=== PATIENT | female | born 1955 | race Caucasian/White ===

== ENCOUNTER → 2020-08-04 14:27 | Outpatient (BNVA) | payer MEDICARE, SELFPAY | PROVIDERS: PCP Pediatrics; Referring Provider Pediatrics; Visit Provider Orthopaedic Surgery | DX: M75.42 Impingement syndrome of left shoulder (principal) | CPT/HCPCS: 20610; J1040 ==

== ENCOUNTER 2022-09-16 13:04 | Outpatient (REF) | payer MEDICARE, SELFPAY ==
[2022-09-16 13:15] LABS: MANUAL DIFF FLAG NO
[2022-09-16 14:17] LABS: Basophils Absolute Auto 0.1 X10*3/uL (0.0-0.2); Basophils Percent Auto 0.7 % (0-2); Eosinophils Absolute Auto 0.3 X10*3/uL (0.0-0.4); Eosinophils Percent Auto 3.6 % (0-4); Hematocrit 47.1 % (37.0-47.0); Imm Gran Abs Auto 0.03 X10*3/uL (0.00-0.03); Imm Gran Pct Auto 0.4 % (0.0-0.4); Lymphocytes Absolute Auto 2.2 X10*3/uL (1.2-4.9); Mean Corpuscular Hemoglobin 31.6 pg (27.0-33.0); Mean Corpuscular Volume 93.1 fL (80.0-98.0); Mean Platelet Volume 10.4 fL (9.4-12.3); Monocytes Absolute Auto 0.9 X10*3/uL (0.1-1.2); Monocytes Percent Auto 12.6 % (2-11); Neutrophils Absolute Auto 3.9 x10*3/uL (2.0-8.3); Neutrophils Percent Auto 52.7 % (45-73); Platelet Count 317 X10*3/uL (160-400); Red Blood Count 5.06 X10*6/uL (4.20-5.50); Red Cell Distribution Width 12.7 % (11.0-16.0); White Blood Count 7.4 X10*3/uL (4.8-10.8)
[2022-09-16 14:37] LABS: Estimated Average Glucose 111 mg/dL; Hemoglobin A1c % 5.5 %
[2022-09-16 14:51] LABS: Alanine Aminotransferase 20 U/L (0-31); Albumin Level 4.6 g/dL (3.5-5.0); Alkaline Phosphatase 70 U/L (39-117); Anion Gap 15 (12-20); Aspartate Amino Transferase 22 U/L (5-31); Bilirubin Total 0.8 mg/dL (0.0-1.0); Blood Urea Nitrogen 13 mg/dL (9-16); C Reactive Protein 0.67 mg/dL (< or = 0.50); Calcium 10.2 mg/dL (8.4-10.2); Carbon Dioxide 30 mmol/L (22-29); Chloride 96 mmol/L (96-108); Cholesterol 190 mg/dL; Estimated Glomerular Filt Rate > 60; Glucose Random 102 mg/dL (60-115); HDL Cholesterol 52 mg/dL; LDL Cholesterol Calculated 106 mg/dl; Potassium 3.6 mmol/L (3.3-5.1); Rheumatoid Factor < 13.0 IU/mL (<15.0); Sodium 137 mmol/L (135-145); Total Protein 7.4 g/dL (6.5-8.0); Triglycerides 164 mg/dL
[2022-09-16 14:57] LABS: Erythrocyte Sedimentation Rate 7 MM/HR (0-20)
[2022-09-19 14:49] LABS: Cyclic Citrullinated Peptide <16 UNITS
== END 2022-09-16 13:05 | disposition home or self-care (01) ==
LOC: HO.LAB 13:04
PROVIDERS: Visit Provider Student in an Organized Health Care Education/Training Program
DX: M25.572 Pain in left ankle and joints of left foot (principal); E88.81 Metabolic syndrome and other insulin resistance; M10.9 Gout, unspecified
CPT/HCPCS: 36415; 80053; 80061; 83036; 85025; 85652; 86140; 86200; 86431; 99202

== ENCOUNTER → 2022-10-18 09:15 | Outpatient (BNVA) | payer MEDICARE, SELFPAY | PROVIDERS: PCP Student in an Organized Health Care Education/Training Program; Visit Provider Student in an Organized Health Care Education/Training Program | DX: M10.072 Idiopathic gout, left ankle and foot (principal); M18.12 Unilateral primary osteoarthritis of first carpometacarpal joint, left hand | CPT/HCPCS: 99212 ==

== ENCOUNTER 2022-10-19 09:13 | Outpatient (REF) | payer MEDICARE, SELFPAY ==
--- NOTE | ~2022-10-19 | XR_ITS ---
EXAMINATION: XR hand wrist LT, XR hand wrist RT CLINICAL INFORMATION: Osteoarthritis COMPARISON: None TECHNIQUE: 4 views of the bilateral hands and wrists FINDINGS: RIGHT HAND: No fracture or dislocation. Moderate degenerative changes of the first carpometacarpal and triscaphe joints with loss of joint space. No cortical erosion. Soft tissues are unremarkable. LEFT HAND: No fracture or dislocation. Moderate to advanced degenerative changes of the first carpometacarpal joint with loss of joint space. Moderate degenerative changes of the distal interphalangeal joints with degenerative spurring. No cortical erosion. Soft tissues are unremarkable. XR/XR hand wrist LT IMPRESSION: Mild to moderate degenerative changes of the right hand and wrist and moderate to advanced degenerative changes of the left wrist as above detailed.
--- NOTE | ~2022-10-19 | XR_ITS ---
EXAMINATION: XR hand wrist LT, XR hand wrist RT CLINICAL INFORMATION: Osteoarthritis COMPARISON: None TECHNIQUE: 4 views of the bilateral hands and wrists FINDINGS: RIGHT HAND: No fracture or dislocation. Moderate degenerative changes of the first carpometacarpal and triscaphe joints with loss of joint space. No cortical erosion. Soft tissues are unremarkable. LEFT HAND: No fracture or dislocation. Moderate to advanced degenerative changes of the first carpometacarpal joint with loss of joint space. Moderate degenerative changes of the distal interphalangeal joints with degenerative spurring. No cortical erosion. Soft tissues are unremarkable. XR/XR hand wrist RT IMPRESSION: Mild to moderate degenerative changes of the right hand and wrist and moderate to advanced degenerative changes of the left wrist as above detailed.
[2022-10-19 10:06] LABS: Alanine Aminotransferase 21 U/L (0-31); Albumin Level 4.4 g/dL (3.5-5.0); Alkaline Phosphatase 76 U/L (39-117); Anion Gap 13 (12-20); Aspartate Amino Transferase 20 U/L (5-31); Bilirubin Total 0.8 mg/dL (0.0-1.0); Blood Urea Nitrogen 13 mg/dL (9-16); Carbon Dioxide 32 mmol/L (22-29); Chloride 99 mmol/L (96-108); Estimated Glomerular Filt Rate > 60; Glucose Random 147 mg/dL (60-115); Potassium 3.4 mmol/L (3.3-5.1); Sodium 141 mmol/L (135-145); Total Protein 7.1 g/dL (6.5-8.0); Uric Acid 4.7 mg/dL (2.4-5.7)
== END 2022-10-19 09:14 | disposition home or self-care (01) ==
LOC: HO.LAB 09:13
PROVIDERS: Visit Provider Student in an Organized Health Care Education/Training Program
DX: M19.041 Primary osteoarthritis, right hand (principal); M19.042 Primary osteoarthritis, left hand; M10.9 Gout, unspecified
CPT/HCPCS: 36415; 73110; 73130; 80053; 84550; 86140

== ENCOUNTER → 2022-10-21 10:07 | Outpatient (BNVA) | payer MEDICARE, SELFPAY | PROVIDERS: Visit Provider Physician Assistant | DX: M18.12 Unilateral primary osteoarthritis of first carpometacarpal joint, left hand (principal) | CPT/HCPCS: 99202 ==

== ENCOUNTER → 2022-11-08 15:11 | Outpatient (BNVA) | payer MEDICARE, SELFPAY | PROVIDERS: PCP Student in an Organized Health Care Education/Training Program; Visit Provider Student in an Organized Health Care Education/Training Program | DX: M18.12 Unilateral primary osteoarthritis of first carpometacarpal joint, left hand (principal) | CPT/HCPCS: 20600; 99212 ==

== ENCOUNTER → 2022-12-20 12:21 | Outpatient (BNVA) | payer MEDICARE, SELFPAY | PROVIDERS: PCP Student in an Organized Health Care Education/Training Program; Visit Provider Orthopaedic Surgery | DX: M18.0 Bilateral primary osteoarthritis of first carpometacarpal joints (principal); M77.8 Other enthesopathies, not elsewhere classified | CPT/HCPCS: 20550; 99202; J1100 ==

== ENCOUNTER → 2023-03-01 11:21 | Outpatient (BNVA) | payer MEDICARE, SELFPAY | PROVIDERS: PCP Student in an Organized Health Care Education/Training Program; Visit Provider Orthopaedic Surgery | DX: M77.8 Other enthesopathies, not elsewhere classified (principal); M18.12 Unilateral primary osteoarthritis of first carpometacarpal joint, left hand | CPT/HCPCS: 99212 ==

== ENCOUNTER → 2023-04-12 10:43 | Outpatient (BNVA) | payer MEDICARE, SELFPAY | PROVIDERS: PCP Student in an Organized Health Care Education/Training Program; Visit Provider Orthopaedic Surgery | DX: S62.002D Unspecified fracture of navicular [scaphoid] bone of left wrist, subsequent encounter for fracture with routine healing (principal); M18.12 Unilateral primary osteoarthritis of first carpometacarpal joint, left hand | CPT/HCPCS: 99212 ==

== ENCOUNTER 2023-05-22 15:00 | Outpatient (RCR) | payer MEDICARE, SELFPAY ==
--- NOTE | 2023-03-28 11:56 | MHC.OT.EP ---
[address] [phone] Occupational Therapy Plan of Care Patient Name: Gila Caceres Date of Evaluation: 03/28/23 Diagnosis: Left FCR tendonitis Left 1st CMC OA Pain Location: 4-8 base of thumb sharp or constant ache prox to base of thumb Pain Score: 6 Pain Scale Used: Numeric (0 - 10) Aggravating Factors: Left hand pinching, gripping .. hand use. Pain at rest Alleviating Factors: Cold Assessment: Pt is a 67 yo female s/p injection for left CMC jt pain in October and for left FCR in December without improvement. Pt referred to OT Today pt presents with left wrist and thumb impairments in pain, ROM , strength and function due CMC OA and FCR tendonitis. Pt will benefit from OT for modalities for pain , ther ex and pt ed in joint protection and self management Frequency and Duration: The patient will be seen 3x wk x 6 wks Short Term Goals: Report on use of joint protection with daily activities Decrease pain to 0/10 at rest Demo independence with HEP Tolerate isometric wrist and hand strengthening Half-Way Goals: Pain free left wrist ext to >65 deg Pain free left wrist flex to >70 deg Left meat wrapper to > 30 lb Pain free with light to moderate heavy ADL and IADL with activity modifications as needed Treatment Plan: Therapeutic Exercise Therapeutic Activity Home Exercise Program Splinting Patient Education ADL Training Ultrasound Iontophoresis MHP Cold Packs Soft Tissue Mobilization Electronically Signed By: Nehal Moody OT CHT CLT Please Sign and return to therapist. Thank you once again for your referral.
--- NOTE | 2023-06-16 08:22 | MHC.OT.DC ---
[address] [phone] F: [phone] Occupational Therapy Discharge Note Patient Name: Gila Caceres Provider: Tasha Amanda Diagnosis: Left FCR tendonitis Left 1st CMC OA Date of Surgery: 12/20/22 Date of Evaluation: 03/28/23 Date of Discharge: 06/16/23 Treatments to Date: 11 Cancellations to Date: No Shows to Date: Discharge Status: Patient Elected to Stop Discharge Summary: Significant improvement in pain and thenar ms edema noted with hold on ther ex for pain and edema to calm down Pt protecting left wrist and thumb with daily activities and indep with taping for support Pt scheduled a second opinion on a surgical option with [facility] on 05/31/23 and cancelled follow up OT appointments Electronically Signed By: Nehal Moody OT CHT CLT Reviewed/agree with student documentation: Therapist: Please Sign and return to therapist, thank you for your referral.
== END 2023-06-16 08:22 | disposition home or self-care (01) ==
LOC: HO.OT 15:00
PROVIDERS: PCP Student in an Organized Health Care Education/Training Program; Visit Provider Orthopaedic Surgery
DX: M77.8 Other enthesopathies, not elsewhere classified (principal); M18.12 Unilateral primary osteoarthritis of first carpometacarpal joint, left hand
CPT/HCPCS: 97033; 97035; 97110; 97140; 97166; 97760

== ENCOUNTER 2024-05-08 13:48 | Outpatient (REF) | payer MEDICARE, SELFPAY ==
[2024-05-08 15:11] LABS: MANUAL DIFF FLAG NO
[2024-05-08 15:49] LABS: Basophils Absolute Auto 0.1 X10*3/uL (0.0-0.2); Basophils Percent Auto 0.7 % (0-2); Eosinophils Absolute Auto 0.6 X10*3/uL (0.0-0.4); Eosinophils Percent Auto 7.3 % (0-4); Hematocrit 42.4 % (37.0-47.0); Hemoglobin 14.6 g/dl (12.0-16.0); Imm Gran Abs Auto 0.03 X10*3/uL (0.00-0.03); Imm Gran Pct Auto 0.3 % (0.0-0.4); Lymphocytes Absolute Auto 2.4 X10*3/uL (1.2-4.9); Lymphocytes Percent Auto 27.6 % (20-40); Mean Corpuscular HGB Conc 34.4 g/dl (31.0-35.0); Mean Corpuscular Hemoglobin 32.3 pg (27.0-33.0); Mean Corpuscular Volume 93.8 fL (80.0-98.0); Mean Platelet Volume 12.2 fL (9.4-12.3); Monocytes Absolute Auto 0.8 X10*3/uL (0.1-1.2); Monocytes Percent Auto 9.7 % (2-11); Neutrophils Absolute Auto 4.7 x10*3/uL (2.0-8.3); Neutrophils Percent Auto 54.4 % (45-73); Platelet Count 196 X10*3/uL (160-400); Red Blood Count 4.52 X10*6/uL (4.20-5.50); Red Cell Distribution Width 13.2 % (11.0-16.0); White Blood Count 8.7 X10*3/uL (4.8-10.8)
[2024-05-08 15:51] LABS: Appearance Urine Cloudy; Color Urine Yellow; Glucose Urine UA Negative (Negative); Leukocyte Esterase Urine Trace (Negative); Nitrite Urine Negative (Negative); Specific Gravity - Urine 1.015 (1.005-1.025); UMIC TRIGGER UA YES; Urine Blood Negative (Negative); Urine Ketones Negative (Negative); Urine Protein Negative (Neg-Trace)
[2024-05-08 16:04] LABS: Creatinine Urine 85.47 mg/dL; Total Protein Urine Random < 7 mg/dL (<12)
[2024-05-08 16:23] LABS: Alanine Aminotransferase 27 U/L (0-31); Albumin Level 4.9 g/dL (3.5-5.0); Alkaline Phosphatase 78 U/L (39-117); Anion Gap 17 (12-20); Aspartate Amino Transferase 31 U/L (5-31); Bilirubin Total 0.6 mg/dL (0.0-1.0); Blood Urea Nitrogen 15 mg/dL (9-16); C Reactive Protein 0.39 mg/dL (< or = 0.50); Calcium 10.6 mg/dL (8.4-10.2); Carbon Dioxide 27 mmol/L (22-29); Chloride 100 mmol/L (96-108); Estimated Glomerular Filt Rate > 60; Glucose Random 96 mg/dL (60-115); Potassium 3.2 mmol/L (3.3-5.1); Sodium 141 mmol/L (135-145); Total Protein 8.4 g/dL (6.5-8.0); Uric Acid 4.1 mg/dL (2.4-5.7)
[2024-05-08 16:26] LABS: Bacteria Urine None Seen (None Seen); Hyaline Casts Urine 0-2 /LPF (0-2); RBC Urine 0-2 /HPF (0-2); WBC Urine 0-5 /HPF (0-5)
[2024-05-08 17:35] LABS: Erythrocyte Sedimentation Rate 10 MM/HR (0-20)
[2024-05-09 04:53] LABS: HBc Num1 0.17 S/CO (0.00-0.79); HBsAGNum1 0.31 S/CO (0.00-0.99); Hepatitis A Antibody IgM 0.24 Index (0-0.79); Hepatitis B Core Antibody Nonreactive (Nonreactive); Hepatitis B Surface Antigen Negative (Negative); ~HepC Num1 0.19 S/CO (0.00-0.79); ~Hepatitis A Antibody IgM Nonreactive (Nonreactive); ~Hepatitis B Surface Antibody NONREACTIVE (Nonreactive); ~Hepatitis C Antibody Nonreactive (Nonreactive)
[2024-05-09 10:18] LABS: Complement C3 136 mg/dL (83-193)
[2024-05-09 14:29] LABS: Anti DNA DS Antibody <1 IU/mL; Antibody to SS-A Antigen <1.0 NEG AI (<1.0 NEG); Antibody to SS-B Antigen <1.0 NEG AI (<1.0 NEG); Myeloperoxidase Antibody <1.0 AI; Proteinase 3 PR3 Antibodies <1.0 AI; SM/Ribonucleoprotein Ab <1.0 NEG AI (<1.0 NEG); Smith Protein <1.0 NEG AI (<1.0 NEG)
[2024-05-10 11:39] LABS: IgA 162 mg/dL (70-320); IgG 1156 mg/dL (600-1540); IgM 237 mg/dL (50-300)
[2024-05-10 22:37] LABS: Prot Elec - Albumin 4.7 g/dL (3.8-4.8); Prot Elec - Alpha1 0.3 g/dL (0.2-0.3); Prot Elec - Alpha2 0.7 g/dL (0.5-0.9); Prot Elec - Beta 1 0.5 g/dL (0.4-0.6); Prot Elec - Beta 2 0.3 g/dL (0.2-0.5); Prot Elec - Gamma 1.1 g/dL (0.8-1.7); Prot Elec - Total Protein 7.6 g/dL (6.1-8.1); TS Negative Control Passed; TS Panel A 0; TS Panel B 1; TS Positive Control Passed; TSpotTB Negative (Negative)
[2024-05-11 18:48] LABS: Angiotensin Converting Enzyme 44 U/L (9-67)
[2024-05-14 10:08] LABS: Anti Nuclear Antibody Screen POSITIVE (NEGATIVE)
[2024-05-19 17:12] LABS: Cytosolic 5'nuc 1A Ab IgG <5 Units; Ej Ab <11 SI (<11); HMGCR Ab IgG <2 CU (<20); Jo-1 Ab <11 SI (<11); MDA5 Ab <11 SI (<11); Mi-2 alpha Ab <11 SI (<11); Mi-2 beta Ab <11 SI (<11); NXP-2 (MJ) Ab <11 SI (<11); Oj Ab <11 SI (<11); Pl-12 Ab <11 SI (<11); Pl-7 Ab <11 SI (<11); SRP Ab <11 SI (<11); TIF1 gamma Ab <11 SI (<11)
[2024-05-21 15:33] LABS: DNAds, Crithidia Antibody Negative (Negative)
[2024-05-21 16:09] LABS: Centromere Protein A Ab <11 SI (<11); Centromere Protein B Ab <11 SI (<11); Fibrillarin Ab <11 SI (<11); PM SCL 100 Ab 11 SI (<11); PM SCL 75 Ab <11 SI (<11); RNA Polymerase III RP11 Ab <11 SI (<11); RNA Polymerase III RP155 Ab <11 SI (<11); SCL-70 Extractable Nuclear Ab <11 SI (<11); Th-To Ab <11 SI (<11); U1 SNRNP RNP 70KD <11 SI (<11); U1 SNRNP RNP A <11 SI (<11); U1 SNRNP RNP C <11 SI (<11)
== END 2024-05-08 13:49 | disposition home or self-care (01) ==
LOC: HO.LAB 13:48
PROVIDERS: PCP Student in an Organized Health Care Education/Training Program; Visit Provider Student in an Organized Health Care Education/Training Program
DX: Z11.59 Encounter for screening for other viral diseases (principal); Z11.7 Encounter for testing for latent tuberculosis infection; M32.9 Systemic lupus erythematosus, unspecified; M34.9 Systemic sclerosis, unspecified; M10.072 Idiopathic gout, left ankle and foot; I77.6 Arteritis, unspecified; D86.9 Sarcoidosis, unspecified; R76.8 Other specified abnormal immunological findings in serum; Z72.89 Other problems related to lifestyle; M18.0 Bilateral primary osteoarthritis of first carpometacarpal joints
CPT/HCPCS: 36415; 80053; 81001; 82164; 82550; 82570; 82784; 83516; 83520; 84156; 84165; 84182; 84550; 85025; 85652; 86021; 86038; 86039; 86140; 86160; 86225; 86235; 86255; 86334; 86481; 86704; 86706; 86709; 86803; 87340; 99212

== ENCOUNTER 2024-05-08 13:48 | Outpatient (AMB) | payer MEDICARE, SELFPAY ==
[2024-05-08 14:00] VITALS: BP 132/72; PULSE 70; O2SAT 99; BMI 25.0
--- NOTE | 2024-05-08 14:00 | MHC.OFFVIS ---
Vital Signs 05/08/24 14:00 Height 5 ft 2 in Weight 136 lb 7.458 oz BMI 25.0 BP 132/72 Blood Pressure Location Lt brachial Pulse 70 Pulse Source Pulse Oximeter Pulse Oximetry (%) 99 Oxygen Delivery Method Room Air Intake Visit Reasons: Gout Intake Note: Patient is here to follow up on autoimmune disease. Allergies adhesive tape Adverse Reaction (Unknown, Verified 05/08/24 14:03) Unknown amoxicillian Allergy (Unknown, Uncoded 05/08/24 14:03) Diarhhea Medication List - Last Reconciled 05/08/24 by Chepe Zheng MD allopurinol 300 mg PO DAILY amlodipine benzoate 2.5 mg PO DAILY colchicine 0.6 mg PO .every other day ibuprofen 800 mg PO Q8H PRN olmesartan 20 mg PO DAILY [thumb spica As directed] tiotropium bromide 1.25 mcg/actuation (Spiriva Respimat) 2 puffs inhalation DAILY HPI Comments Details: This is a 68-year-old female with gout who presents for follow-up. She states that her low-dose CT lung scan showed a nodule in her right long, repeat CT chest showed that the nodule has a neurologist, she eventually had a VATS procedure and had right upper lobectomy. Pathology showed inflammatory changes. She had a neither CT scan of the chest a few months later which showed another nodule on the left lung. At that time she blood work which showed a positive MENDEZ. Patient states that in this whole process she has not had any new symptoms. She denies any cough, shortness of breath, fevers, chills, skin rashes. She denies any history of DVT/PE. She states that she has a positive family history of rheumatoid arthritis. She continues to have pain at the base of her thumbs, worse on the left due to known osteoarthritis, her hand surgeon had suggested left thumb surgery but patient wanted to postpone the procedure. [facility], [facility] Medical History Right upper lobe pulmonary nodule COPD (chronic obstructive pulmonary disease) Emphysema lung Hypertension Family History Mother Brainstem hemorrhage Father Gout Sister Rheumatoid arthritis Brother Rheumatoid arthritis Social History Current occupational status: retired Current occupation: Right Handed Female Reproductive History Menstrual Total pregnancies: 3 Ab spontaneous: 1 Review of Systems Const Denies fever(s) and Denies weight loss Card Denies dyspnea on exertion Resp Denies cough and Denies dyspnea on exertion Musc Reports arthralgias, Denies joint swelling and Reports stiffness Skin/Breast Reports unusual bruising Physical Exam Vital Signs: Last Vital Signs Pulse 70 05/08/24 14:00 BP 132/72 05/08/24 14:00 Pulse Ox 99 05/08/24 14:00 Oxygen Delivery Method Room Air 05/08/24 14:00 BMI result Body Mass Index 25.0 Const General: cooperative, healthy appearing and comfortable Nutritional Appearance: average body habitus Orientation/consciousness: patient oriented x3 Limitations: no limitations HEENT Head: Yes normocephalic and Yes atraumatic Mouth: moist mucous membranes Resp Effort & Inspection: normal respiratory effort and able to speak in complete sentences Cardio Rate: regular rate Skin Other: Mild erythematous rash on the anterior aspect of her neck Neuro General: patient oriented x3 Extrem Other: Significant osteoarthritic changes of both hands with no active synovitis Left 1st CMC joint tenderness Normal nailfold capillaroscopy Results Reviewed Results Reviewed: Lung biopsy 08/2023? A. Pleura, right:? Biopsy - fibrous pleural plaque? Negative for carcinoma? B. Lung right upper lobe lobectomy - organizing pneumonia, bronchiectasis with intraluminal calcifications, acute inflammation, and debris with nodular peribronchial inflammation.?? Negative for carcinoma? Fifteen lymph nodes negative for tumor? Note:? Grossly, a firm area is identified that may correlate with imaging findings.? Histology shows a dense area of organizing pneumonia with abundant histiocytes and focal giant cells in this area.? Multiple bronchi contain intraluminal, focally calcified debris and bronchiectasis.? No endobronchial tumor was identified, bronchi opened and examined grossly and histologically.? Histologic examination of the entire dye marked area along with the adjacent larger airways is performed.? Immunohistochemical stain for TTFf- highlights benign normal size.? No area with larger or architecturally crowded nuclei are identified.? Special stains for AFB, GMS and PAS are performed and are interpreted as negative for acid-fast bacilli and fungal forms, respectively? Together, these findings are inflammatory with both chronic and acute components.? This may represent an ongoing reaction to foreign material entrapped in the bronchial lumen? C. Lymph node level 7 One lymph node, negative for carcinoma Assessment & Plan Assessment & Plan (1) MENDEZ positive: Code(s): R76.8 - Other specified abnormal immunological findings in serum Category: Medical Plan: Positive MENDEZ 1-2560 in the setting of developing lung nodules. Right lung biopsy showed inflammatory changes with no malignancy. A few months after patient developed a left long nodule. Patient has rash on anterior aspect of her neck. I will order comprehensive serology to screen for underlying autoimmune rheumatic disease. Follow-up in 6 weeks (2) Gout: Code(s): M10.9 - Gout, unspecified Category: Medical Qualifiers: Gout site: foot Gout etiology: idiopathic Chronicity: acute Laterality: left Qualified Code(s): M10.072 - Idiopathic gout, left ankle and foot Plan: Seems to be well controlled on allopurinol. Patient is not sure of the current dose. I will check her uric acid level (3) Arthritis of carpometacarpal (CMC) joint of right thumb: Code(s): M18.11 - Unilateral primary osteoarthritis of first carpometacarpal joint, right hand Category: Medical (4) Arthritis of carpometacarpal (CMC) joint of left thumb: Code(s): M18.12 - Unilateral primary osteoarthritis of first carpometacarpal joint, left hand Category: Medical Plan: Seems to be most symptomatic. Surgery was recommended but patient wanted to postpone the surgery. Follow-up with hand surgeon Plan I spent 46 minutes reviewing patient's chart, evaluating patient, ordering diagnostic workup, counseling patient and documenting in the chart Orders: Orders Anti Extractable Nuclear Ag Today M32.9 - Systemic lupus erythematosus, unspecified C Reactive Protein Today M32.9 - Systemic lupus erythematosus, unspecified DNA Double Stranded-Crithidia Today M32.9 - Systemic lupus erythematosus, unspecified Sjogren's Antibodies Today M32.9 - Systemic lupus erythematosus, unspecified ANCA Vasculitides Today I77.6 - Arteritis, unspecified Comprehensive Met. Panel Today M32.9 - Systemic lupus erythematosus, unspecified Scleroderma 12 Panel Today M34.9 - Systemic sclerosis, unspecified MSA Panel Extended Today M60.9 - Myositis, unspecified Uric Acid Today M10.072 - Idiopathic gout, left ankle and foot MENDEZ Reflex Titer and Pattern Today M32.9 - Systemic lupus erythematosus, unspecified Anti DNA DS Antibody Today M32.9 - Systemic lupus erythematosus, unspecified Complement C3 Today M32.9 - Systemic lupus erythematosus, unspecified Complement C4 Today M32.9 - Systemic lupus erythematosus, unspecified Erythrocyte Sedimentation Rate Today M32.9 - Systemic lupus erythematosus, unspecified Protein Creatinine Ratio, Ur Today M32.9 - Systemic lupus erythematosus, unspecified UA w Microscopic Today M32.9 - Systemic lupus erythematosus, unspecified Angiotensin Converting Enzyme Today D86.9 - Sarcoidosis, unspecified Complete Blood Count Auto Diff Today M32.9 - Systemic lupus erythematosus, unspecified Hepatitis A,B,C Profile Today Z11.59 - Encounter for screening for other viral diseases Immunofixation Pnl, Serum Today M32.9 - Systemic lupus erythematosus, unspecified Protein Electrophoresis, Serum Today M32.9 - Systemic lupus erythematosus, unspecified T Spot TB Today Z11.7 - Encounter for testing for latent tuberculosis infection Creatine Kinase Total Today M32.9 - Systemic lupus erythematosus, unspecified Immunoglobulin G Subclasses Today D89.84 - IgG4-related disease Coding Level of Care Code Est Pt Level 5 (24075) Diagnoses MENDEZ positive R76.8 Acute idiopathic gout of left foot M10.072 Gout site: foot Gout etiology: idiopathic Chronicity: acute Laterality: left Arthritis of carpometacarpal (CMC) joint of right thumb M18.11 Arthritis of carpometacarpal (CMC) joint of left thumb M18.12
== END 2024-05-08 14:36 | disposition home or self-care (01) ==
PROVIDERS: PCP Student in an Organized Health Care Education/Training Program; Visit Provider Student in an Organized Health Care Education/Training Program
DX: R76.8 Other specified abnormal immunological findings in serum (principal); M10.072 Idiopathic gout, left ankle and foot; M18.0 Bilateral primary osteoarthritis of first carpometacarpal joints
CPT/HCPCS: 99215

== ENCOUNTER 2024-07-02 11:36 | Outpatient (AMB) | payer MEDICARE, SELFPAY ==
--- NOTE | 2024-07-02 11:40 | MHC.OFFVIS ---
Vital Signs 07/02/24 11:44 Height 5 ft 2 in Weight 136 lb 3.931 oz BMI 24.9 BP 132/70 Blood Pressure Location Rt brachial Position Sitting Pulse 87 Pulse Source Pulse Oximeter Pulse Oximetry (%) 98 Oxygen Delivery Method Room Air Intake Visit Reasons: MENDEZ +ve Intake Note: Patient presents for MENDEZ + ve follow up. Allergies adhesive tape Adverse Reaction (Unknown, Verified 07/02/24 11:44) Unknown amoxicillian Allergy (Unknown, Uncoded 05/08/24 14:03) Diarhhea Medication List - Last Reconciled 07/02/24 by Chepe Zheng MD allopurinol 300 mg PO DAILY amlodipine benzoate 2.5 mg PO DAILY colchicine 0.6 mg PO .every other day ibuprofen 800 mg PO Q8H PRN olmesartan 20 mg PO DAILY [thumb spica As directed] tiotropium bromide 1.25 mcg/actuation (Spiriva Respimat) 2 puffs inhalation DAILY HPI Comments Details: Patient returns for follow-up with her for review of her diagnostic workup Last visit 04/2024: This is a 68-year-old female with gout who presents for follow-up. She states that her low-dose CT lung scan showed a nodule in her right long, repeat CT chest showed that the nodule has a neurologist, she eventually had a VATS procedure and had right upper lobectomy. Pathology showed inflammatory changes. She had a neither CT scan of the chest a few months later which showed another nodule on the left lung. At that time she blood work which showed a positive MENDEZ. Patient states that in this whole process she has not had any new symptoms. She denies any cough, shortness of breath, fevers, chills, skin rashes. She denies any history of DVT/PE. She states that she has a positive family history of rheumatoid arthritis. She continues to have pain at the base of her thumbs, worse on the left due to known osteoarthritis, her hand surgeon had suggested left thumb surgery but patient wanted to postpone the procedure. [facility] Medical History Right upper lobe pulmonary nodule COPD (chronic obstructive pulmonary disease) Emphysema lung Hypertension Family History Mother Brainstem hemorrhage Father Gout Sister Rheumatoid arthritis Brother Rheumatoid arthritis Social History Current occupational status: retired Current occupation: Right Handed Female Reproductive History Menstrual Total pregnancies: 3 Ab spontaneous: 1 Review of Systems Const Denies fever(s) and Denies weight loss Card Denies dyspnea on exertion Resp Denies cough and Denies dyspnea on exertion Musc Reports arthralgias, Denies joint swelling and Reports stiffness Skin/Breast Reports unusual bruising Physical Exam Vital Signs: Last Vital Signs Pulse 87 07/02/24 11:44 BP 132/70 07/02/24 11:44 Pulse Ox 98 07/02/24 11:44 Oxygen Delivery Method Room Air 07/02/24 11:44 BMI result Body Mass Index 24.9 Const General: cooperative, healthy appearing and comfortable Nutritional Appearance: average body habitus Orientation/consciousness: patient oriented x3 Limitations: no limitations HEENT Head: Yes normocephalic and Yes atraumatic Mouth: moist mucous membranes Resp Effort & Inspection: normal respiratory effort and able to speak in complete sentences Cardio Rate: regular rate Skin Other: Mild erythematous rash on the anterior aspect of her neck Neuro General: patient oriented x3 Extrem Other: Significant osteoarthritic changes of both hands with no active synovitis Left 1st CMC joint tenderness Normal nailfold capillaroscopy Results Reviewed Results Reviewed: Lung biopsy 08/2023? A. Pleura, right:? Biopsy - fibrous pleural plaque? Negative for carcinoma? B. Lung right upper lobe lobectomy - organizing pneumonia, bronchiectasis with intraluminal calcifications, acute inflammation, and debris with nodular peribronchial inflammation.?? Negative for carcinoma? Fifteen lymph nodes negative for tumor? Note:? Grossly, a firm area is identified that may correlate with imaging findings.? Histology shows a dense area of organizing pneumonia with abundant histiocytes and focal giant cells in this area.? Multiple bronchi contain intraluminal, focally calcified debris and bronchiectasis.? No endobronchial tumor was identified, bronchi opened and examined grossly and histologically.? Histologic examination of the entire dye marked area along with the adjacent larger airways is performed.? Immunohistochemical stain for TTFf- highlights benign normal size.? No area with larger or architecturally crowded nuclei are identified.? Special stains for AFB, GMS and PAS are performed and are interpreted as negative for acid-fast bacilli and fungal forms, respectively? Together, these findings are inflammatory with both chronic and acute components.? This may represent an ongoing reaction to foreign material entrapped in the bronchial lumen? C. Lymph node level 7 One lymph node, negative for carcinoma Assessment & Plan Assessment & Plan (1) MENDEZ positive: Code(s): R76.8 - Other specified abnormal immunological findings in serum Category: Medical Plan: Positive MENDEZ 1-2560 in the setting of developing lung nodules. Right lung biopsy showed inflammatory changes with no malignancy. A few months after patient developed a left lung nodule. Throughout this process patient has been asymptomatic from pulmonary standpoint. Upon evaluation there is no active synovitis, no rashes suspicious for an autoimmune connective tissue disease, no proximal muscle weakness suggestive of myositis. No Raynaud's, no skin thickening. Comprehensive serology and inflammatory markers are negative. There is no proteinuria. At this time I do not see any evidence of a systemic autoimmune rheumatic disease that would require a DMARD from Rheumatology standpoint. Discussed symptoms and signs that are suggestive of an autoimmune rheumatic disease Follow-up with Pulmonary Re-evaluate in 4 months (2) Gout: Code(s): M10.9 - Gout, unspecified Category: Medical Qualifiers: Gout site: foot Gout etiology: idiopathic Chronicity: acute Laterality: left Qualified Code(s): M10.072 - Idiopathic gout, left ankle and foot Plan: Seems to be well controlled on allopurinol. Uric acid level is 4.1 which is at target (3) Arthritis of carpometacarpal (CMC) joint of right thumb: Code(s): M18.11 - Unilateral primary osteoarthritis of first carpometacarpal joint, right hand Category: Medical (4) Arthritis of carpometacarpal (CMC) joint of left thumb: Code(s): M18.12 - Unilateral primary osteoarthritis of first carpometacarpal joint, left hand Category: Medical Plan I spent 46 minutes reviewing patient's chart, evaluating patient, ordering diagnostic workup, counseling patient and documenting in the chart Coding Level of Care Code Est Pt Level 4 (49651) Diagnoses MENDEZ positive R76.8 Acute idiopathic gout of left foot M10.072 Gout site: foot Gout etiology: idiopathic Chronicity: acute Laterality: left Arthritis of carpometacarpal (CMC) joint of right thumb M18.11 Arthritis of carpometacarpal (CMC) joint of left thumb M18.12
[2024-07-02 11:44] VITALS: BP 132/70; PULSE 87; O2SAT 98; BMI 24.9
== END 2024-07-02 12:36 | disposition home or self-care (01) ==
PROVIDERS: PCP Student in an Organized Health Care Education/Training Program; Visit Provider Student in an Organized Health Care Education/Training Program
DX: R76.8 Other specified abnormal immunological findings in serum (principal); M10.072 Idiopathic gout, left ankle and foot; M18.0 Bilateral primary osteoarthritis of first carpometacarpal joints
CPT/HCPCS: 99215

== ENCOUNTER → 2024-07-02 11:36 | Outpatient (BNVA) | payer MEDICARE, SELFPAY | PROVIDERS: PCP Student in an Organized Health Care Education/Training Program; Visit Provider Student in an Organized Health Care Education/Training Program | DX: M10.072 Idiopathic gout, left ankle and foot (principal); R76.8 Other specified abnormal immunological findings in serum; M18.11 Unilateral primary osteoarthritis of first carpometacarpal joint, right hand; M18.12 Unilateral primary osteoarthritis of first carpometacarpal joint, left hand | CPT/HCPCS: 99212 ==